=== PATIENT | male | born 1970 | race Hispanic/Latino ===

== ENCOUNTER 2019-05-27 18:00 | Outpatient (CLI) | payer BC | END 2019-05-27 18:01 | disposition home or self-care (01) | LOC: SLEEPLAB 18:00 | PROVIDERS: ATTEND Internal Medicine Critical Care Medicine | DX: G47.33 Obstructive sleep apnea (adult) (pediatric) (principal) | CPT/HCPCS: 95806 ==

== ENCOUNTER 2019-08-08 19:30 | Outpatient (CLI) | payer BC | END 2019-08-08 19:31 | disposition home or self-care (01) | LOC: SLEEPLAB 19:30 | PROVIDERS: ATTEND Internal Medicine Critical Care Medicine | DX: G47.33 Obstructive sleep apnea (adult) (pediatric) (principal) | CPT/HCPCS: 95811 ==

== ENCOUNTER 2020-12-25 04:14 | Inpatient (IN) | payer BC ==
[2020-12-25] MEDS ORDERED: Morphine 4 MG/ML VIAL ONE (04:34)
[2020-12-25] MEDS ORDERED: Ondansetron PF 4 MG/2 ML Vial ONE (04:34)
[2020-12-25 05:27] LABS: #Basophils 0.1 thou/uL (0.0-0.2); #Eosinphils 0.1 thou/uL (0.0-0.7); #Lymphocytes 1.3 thou/uL (1.20-3.40); #Monocytes 0.5 thou/uL (0.11-0.59); #Neutrophils 5.5 thou/uL (1.40-6.50); %Basophils 0.8 % (0.0-1.0); %Eosinophils 1.5 % (0.0-10.0); %Lymphocytes 17.4 % (21.0-51.0); %Monocytes 6.6 % (0.0-10.0); %Neutrophils 73.8 % (42.0-75.0); Hemoglobin 16.5 g/dL (14.0-18.0); Mean Corpuscular HGB CONC 34.5 g/dL (32.0-36.0); Mean Corpuscular Hemoglobin 32.3 pg (27.0-31.0); Mean Corpuscular Volume 93.4 fL (78.0-98.0); Mean Platelet Volume 8.9 fL (7.4-10.4); Platelet Count 192 thou/uL (130-400); RBC Distribution Width 11.8 % (11.5-14.5); Red Blood Cell (RBC) Count 5.11 mill/uL (4.70-6.10); White Blood Cell (WBC) Count 7.4 thou/uL (4.8-10.8)
[2020-12-25 05:48] LABS: ALT (SGPT) 412 U/L (8-55); AST (SGOT) 161 U/L (5-34); Albumin 4.4 g/dL (3.5-5.0); Alkaline Phosphatase 212 U/L (40-110); Anion Gap 15 mmol/L (10-20); BUN (Urea Nitrogen) 8 mg/dL (8.9-20.6); Bilirubin, Total 4.5 mg/dL (0.2-1.2); Calc. Creatinine Clearance 0 mL/min (70-130); Calcium 9.4 mg/dL (7.8-10.44); Carbon Dioxide 28 mmol/L (22-29); Chloride 100 mmol/L (98-107); Glucose 95 mg/dL (70-105); Potassium 3.8 mmol/L (3.5-5.1); Protein, Total 7.4 g/dL (6.0-8.3); Sodium 139 mmol/L (136-145)
[2020-12-25 05:49] LABS: Bacteria/HPF None Seen HPF (None Seen); Bilirubin 2+ (Negative); Blood, Urine Trace (Negative); Clarity Clear (Clear); Glucose, Urine (Dipstick) Normal (Negative); Ketone, Urine Greater than 150 mg/dL (Negative); Leukocyte Negative Leu/uL (Negative); Nitrite Negative (Negative); Protein, Urine (Dipstick) 30 mg/dL (Neg-Trace); RBC/HPF 0-3 HPF (0-3); Specific Gravity, Urine 1.024 (1.002-1.036); Squamous Epithelial 0-3 HPF (0-3); Urobilinogen Normal mg/dL (Less than 2); WBC/HPF 0-3 HPF (0-3)
[2020-12-25 06:03] LABS: Lipase 1866 U/L (8-78)
[2020-12-25] MEDS ORDERED: Piperacillin/Tazobactam 3.375 GM VIAL ONE (06:26)
[2020-12-25 09:46] VITALS: BMI 26.6
[2020-12-25] MEDS ORDERED: Guaifenesin DM 100-10/5 ML UDCUP PO PRN (10:38)
[2020-12-25] MEDS ORDERED: Calcium Carbonate 500 MG ChewTAB PO PRN (10:38)
[2020-12-25] MEDS ORDERED: Bisacodyl 10 MG SUPP PR PRN (10:38)
[2020-12-25] MEDS ORDERED: HYDROcodone/Acetaminophen 5/325 mg Tablet PO PRN (10:38)
[2020-12-25] MEDS ORDERED: Ondansetron PF 4 MG/2 ML Vial IVP PRN (10:38)
[2020-12-25] MEDS ORDERED: Iopamidol 370 76% 100 ML VIAL ONE (10:43)
[2020-12-25] MEDS ORDERED: Lactated Ringer's 1,000 ML IV SCH (10:45)
[2020-12-25] MEDS ORDERED: Piperacillin/Tazobactam 3.375 GM in Sodium Chloride 0.9% 100 ML IVPB SCH (10:45)
[2020-12-25] MEDS ORDERED: Morphine 4 MG/ML VIAL SLOW IVP PRN (11:09)
[2020-12-25] MEDS: Lactated Ringer's 1,000 ML IV SCH ×3 (11:56→22:51)
[2020-12-25] MEDS: Piperacillin/Tazobactam 3.375 GM in Sodium Chloride 0.9% 100 ML IVPB SCH ×2 (15:00→22:51)
[2020-12-25] MEDS: Famotidine 20 MG TAB PO SCH (22:51)
[2020-12-26] MEDS: Lactated Ringer's 1,000 ML IV SCH ×5 (01:54→20:37)
[2020-12-26] MEDS: Piperacillin/Tazobactam 3.375 GM in Sodium Chloride 0.9% 100 ML IVPB SCH ×3 (04:42→20:37)
[2020-12-26 04:45] LABS: #Eosinphils 0.1 thou/uL (0.0-0.7); #Lymphocytes 1.3 thou/uL (1.20-3.40); #Monocytes 0.9 thou/uL (0.11-0.59); #Neutrophils 7.7 thou/uL (1.40-6.50); %Basophils 0.2 % (0.0-1.0); %Eosinophils 1.5 % (0.0-10.0); %Lymphocytes 12.9 % (21.0-51.0); %Monocytes 8.9 % (0.0-10.0); %Neutrophils 76.5 % (42.0-75.0); Hemoglobin 14.6 g/dL (14.0-18.0); Mean Corpuscular HGB CONC 34.7 g/dL (32.0-36.0); Mean Corpuscular Volume 92.2 fL (78.0-98.0); Platelet Count 169 thou/uL (130-400); RBC Distribution Width 11.5 % (11.5-14.5); Red Blood Cell (RBC) Count 4.57 mill/uL (4.70-6.10)
[2020-12-26 05:08] LABS: Phosphorus 2.5 mg/dL (2.3-4.7)
[2020-12-26 05:19] LABS: ALT (SGPT) 290 U/L (8-55); AST (SGOT) 123 U/L (5-34); Albumin 3.5 g/dL (3.5-5.0); Alkaline Phosphatase 165 U/L (40-110); Anion Gap 15 mmol/L (10-20); BUN (Urea Nitrogen) 6 mg/dL (8.9-20.6); Bilirubin, Total 2.9 mg/dL (0.2-1.2); Calc. Creatinine Clearance 115 mL/min (70-130); Calcium 8.5 mg/dL (7.8-10.44); Carbon Dioxide 24 mmol/L (22-29); Chloride 102 mmol/L (98-107); Globulin 2.4 g/dL (2.4-3.5); Glucose 71 mg/dL (70-105); Lipase 139 U/L (8-78); Magnesium 1.7 mg/dL (1.6-2.6); Potassium 3.9 mmol/L (3.5-5.1); Protein, Total 5.9 g/dL (6.0-8.3); Sodium 137 mmol/L (136-145)
[2020-12-26] MEDS ORDERED: Sodium Phosphate 15 MMOL in Sodium Chloride 0.9% 250 ML 250 ML IVPB SCH (09:30)
[2020-12-26] MEDS ORDERED: Magnesium 2 GM/50 ML 2 GM in Premix Bag 1 BAG IVPB SCH (09:30)
[2020-12-26] MEDS: Enoxaparin Sodium 40 MG/0.4 ML SYRINGE SC SCH (11:27)
[2020-12-26] MEDS: Famotidine 20 MG TAB PO SCH ×2 (11:27→20:36)
[2020-12-26] MEDS ORDERED: Piperacillin/Tazobactam 3.375 GM VIAL ONE (12:10)
[2020-12-26] MEDS ORDERED: Sodium Chloride 0.9% 100 ML ONE (12:11)
[2020-12-26 12:45] LABS: SARS-CoV-2 NAA Rapid Test Not Detected (NotDetected)
[2020-12-26] MEDS ORDERED: Fentanyl 100 MCG/2 ML VIAL ONE ×2 (12:56)
[2020-12-26] MEDS ORDERED: Iothalamate Meglumine 60% 50 ML VIAL FS ONE (13:04)
[2020-12-26] MEDS ORDERED: Bupivacaine 0.25% HCL 30 ML VIAL ONE (13:04)
[2020-12-26] MEDS ORDERED: Lidocaine 1% w/Epinephrine 1:100K 20 ML VIAL ONE (13:04)
[2020-12-26] MEDS ORDERED: Dexamethasone 20 MG/5 ML VIAL ONE (13:28)
[2020-12-26] MEDS ORDERED: PROPOFOL 200 MG/20 ML VIAL ONE (13:28)
[2020-12-26] MEDS ORDERED: Glycopyrrolate 0.2 MG/ML 5 ML SYRINGE ONE (13:28)
[2020-12-26] MEDS ORDERED: Rocuronium Bromide 10 MG/ML (10ML VIAL) ONE (13:28)
[2020-12-26] MEDS ORDERED: Ondansetron PF 4 MG/2 ML Vial ONE (13:28)
[2020-12-26] MEDS ORDERED: Ketorolac Tromethamine 30 MG/ML VIAL ONE (13:28)
[2020-12-26] MEDS ORDERED: Lidocaine 1% PF 5 ML VIAL ONE (13:28)
[2020-12-26] MEDS ORDERED: Promethazine HCl 25 MG/ML VIAL IVPB PRN (15:03)
[2020-12-26] MEDS ORDERED: Promethazine HCl 25 MG/ML VIAL IM PRN (15:03)
[2020-12-26] MEDS ORDERED: Meperidine HCl/PF 25 MG/ML VIAL SLOW IVP PRN (15:03)
[2020-12-26] MEDS ORDERED: Ondansetron HCl/PF 4 MG/2 ML Vial IVP PRN (15:03)
[2020-12-26] MEDS ORDERED: HYDROmorphone 2 MG/ML VIAL SLOW IVP PRN (15:03)
[2020-12-26] MEDS ORDERED: Meperidine HCl/PF 25 MG/ML VIAL ONE (15:29)
[2020-12-26] MEDS ORDERED: traMADol HCl 50 MG TAB PO PRN (17:12)
[2020-12-26] MEDS: Acetaminophen 325 MG TAB PO SCH ×2 (18:17→23:59)
[2020-12-26] MEDS: traMADol HCl 50 MG TAB PO SCH ×2 (18:17→23:59)
[2020-12-27] MEDS: Lactated Ringer's 1,000 ML IV SCH ×2 (04:45→11:38)
[2020-12-27] MEDS: Piperacillin/Tazobactam 3.375 GM in Sodium Chloride 0.9% 100 ML IVPB SCH ×2 (04:45→11:34)
[2020-12-27 05:22] LABS: ALT (SGPT) 280 U/L (8-55); AST (SGOT) 125 U/L (5-34); Albumin 3.8 g/dL (3.5-5.0); Alkaline Phosphatase 150 U/L (40-110); Anion Gap 13 mmol/L (10-20); BUN (Urea Nitrogen) 4 mg/dL (8.9-20.6); Bilirubin, Total 1.9 mg/dL (0.2-1.2); Calc. Creatinine Clearance 119 mL/min (70-130); Calcium 8.5 mg/dL (7.8-10.44); Carbon Dioxide 27 mmol/L (22-29); Chloride 103 mmol/L (98-107); Globulin 2.5 g/dL (2.4-3.5); Glucose 112 mg/dL (70-105); Lipase 28 U/L (8-78); Potassium 4.5 mmol/L (3.5-5.1); Protein, Total 6.3 g/dL (6.0-8.3); Sodium 138 mmol/L (136-145)
[2020-12-27] MEDS: traMADol HCl 50 MG TAB PO SCH ×2 (05:35→11:44)
[2020-12-27] MEDS: Acetaminophen 325 MG TAB PO SCH ×2 (05:35→11:34)
[2020-12-27] MEDS: Enoxaparin Sodium 40 MG/0.4 ML SYRINGE SC SCH (09:18)
[2020-12-27] MEDS: Famotidine 20 MG TAB PO SCH (09:18)
[2020-12-27 12:38] VITALS: BP 128/80; TEMP 98.3
== END 2020-12-27 16:32 | disposition home or self-care (01) | DRG 418 ==
LOC: ERS 04:14 → SURG B 06:44
PROVIDERS: ADMIT Internal Medicine; ATTEND Internal Medicine
PROC: 0FT44ZZ Resection of Gallbladder, Percutaneous Endoscopic Approach (ICD-10-PCS; principal; 2020-12-26)
PROC: BF10YZZ Fluoroscopy of Bile Ducts using Other Contrast (ICD-10-PCS; 2020-12-26)
DX: K85.10 Biliary acute pancreatitis without necrosis or infection (principal); K80.00 Calculus of gallbladder with acute cholecystitis without obstruction; Z20.822 Contact with and (suspected) exposure to COVID-19; E78.5 Hyperlipidemia, unspecified; N40.0 Benign prostatic hyperplasia without lower urinary tract symptoms; G47.33 Obstructive sleep apnea (adult) (pediatric); Z99.89 Dependence on other enabling machines and devices
CPT/HCPCS: 36415; 47532; 74177; 76705; 80053; 81003; 81015; 83690; 83735; 84100; 85025; 88304; 96365; J1100; J1610; J1650; J1885; J2175; J2270; J2405; J2543; J2704; J3010; J3475; J3490; J7050; J7120; Q9961-U8; Q9967; S0020; U0002

== ENCOUNTER 2023-02-08 08:31 | Outpatient (CLI) | payer BC ==
[2023-02-08 10:19] LABS: #Eosinphils 0.1 10x3/uL (0.0-0.5); #Monocytes 0.5 10x3/uL (0.0-1.1); #Neutrophils 3.1 10x3/uL (1.5-8.4); %Basophils 0.6 % (0.0-2.0); %Eosinophils 2.6 % (0.0-6.0); %Lymphocytes 23.8 % (18.0-47.0); %Monocytes 10.4 % (0.0-10.0); %Neutrophils 62.4 % (40.0-75.0); Hemoglobin 15.6 g/dL (13.5-17.5); Mean Corpuscular HGB CONC 33.9 g/dL (32.0-36.0); Mean Corpuscular Hemoglobin 31.1 pg (27.0-33.0); Mean Corpuscular Volume 91.8 fl (81.2-95.1); Mean Platelet Volume 11.2 fl (7.4-10.4); Platelet Count 209 10x3/uL (150-450); Red Blood Cell (RBC) Count 5.01 10x6/uL (4.32-5.72)
[2023-02-08 10:28] LABS: ALT (SGPT) 24 U/L (8-55); AST (SGOT) 23 U/L (5-34); Albumin 4.4 g/dL (3.5-5.0); Alkaline Phosphatase 67 U/L (40-110); Anion Gap 13 mmol/L (10-20); BUN (Urea Nitrogen) 9 mg/dL (8.4-25.7); Bilirubin, Total 0.8 mg/dL (0.2-1.2); Calc. Creatinine Clearance 0 mL/min (70-130); Calcium 9.5 mg/dL (7.8-10.44); Carbon Dioxide 28 mmol/L (22-29); Chloride 105 mmol/L (98-107); Estimated GFR 105; Globulin 2.5 g/dL (2.4-3.5); Glucose 85 mg/dL (70-105); Protein, Total 6.9 g/dL (6.0-8.3); Sodium 142 mmol/L (136-145)
== END 2023-02-08 08:32 | disposition home or self-care (01) ==
LOC: LABBT 08:31
PROVIDERS: ATTEND Surgery
DX: Z01.818 Encounter for other preprocedural examination (principal); K43.2 Incisional hernia without obstruction or gangrene
CPT/HCPCS: 80053; 85025; 93005; 93010

== ENCOUNTER 2023-02-15 07:58 | Day surgery (SDC) | payer BC ==
[2023-02-08 09:07] VITALS: BMI 30.1
[2023-02-15] MEDS ORDERED: EPINEPHrine 1 MG/ML VIAL ONE (10:14)
[2023-02-15] MEDS ORDERED: Bupivacaine PF 0.5% 30 ML VIAL ONE (10:14)
[2023-02-15] MEDS ORDERED: Sodium Chloride 0.9% 100 ML ONE (10:50)
[2023-02-15] MEDS ORDERED: CEFAZOLIN 2 GM VIAL ONE (10:50)
[2023-02-15] MEDS ORDERED: PROPOFOL 20 ML ONE (11:02)
[2023-02-15] MEDS ORDERED: fentaNYL PF 100 MCG/2 ML SYRINGE ONE (11:02)
[2023-02-15] MEDS ORDERED: Midazolam HCl 2 mg/2 ml Vial ONE (11:02)
[2023-02-15] MEDS ORDERED: PROPOFOL 200 MG/20 ML VIAL ONE (11:04)
[2023-02-15] MEDS ORDERED: Lidocaine 1% PF 5 ML VIAL ONE ×2 (11:04)
[2023-02-15] MEDS ORDERED: Ondansetron PF 4 MG/2 ML Vial ONE ×2 (11:04)
[2023-02-15] MEDS ORDERED: fentaNYL 50 mcg/mL 1 mL Vial ONE ×2 (12:23→12:42)
[2023-02-15] MEDS ORDERED: Ketorolac Tromethamine 30 MG/ML VIAL ONE (12:24)
[2023-02-15] MEDS ORDERED: HYDROcodone/Acetaminophen 5/325 mg Tablet ONE (14:16)
== END 2023-02-15 14:28 | disposition home or self-care (01) ==
LOC: SDC 07:58
PROVIDERS: ATTEND Surgery
PROC: 0WQF0ZZ Repair Abdominal Wall, Open Approach (ICD-10-PCS; principal; 2023-02-15)
DX: K43.2 Incisional hernia without obstruction or gangrene (principal); E78.5 Hyperlipidemia, unspecified; G47.30 Sleep apnea, unspecified; Z90.49 Acquired absence of other specified parts of digestive tract; Z87.891 Personal history of nicotine dependence; Z79.899 Other long term (current) drug therapy
CPT/HCPCS: C1781; J0171; J1885; J2250; J2405; J2704; J3010; J3490; S0020